=== PATIENT | female | born 1990 | race Two or more races ===

== ENCOUNTER 2024-03-15 08:00 | Day surgery (SDC) | payer MEDICAID, SELFPAY ==
[2024-03-14 14:57] VITALS: BMI 30.8
[2024-03-15] VITALS (12 sets, daily range): BP systolic 113–136; BP diastolic 42–96; PULSE 60–90; RESP 13–22; TEMP 36.6–36.7; O2SAT 93–113; BMI 30.4
[2024-03-15] MEDS: DiphenhydrAMINE INJ 50 MG/ML VIAL 25 MG IV (09:38)
[2024-03-15] MEDS: LIDOCAINE JELLY 2% (Urojet) 10 ML TUBE TOP (09:41)
[2024-03-15] MEDS: fentaNYL CIT INJ 50 mCg/ML AMP 2ML (ASD USE ONLY) IV (09:42)
[2024-03-15] MEDS: MEPERIDINE INJ 25 MG/ML VIAL (ASD USE ONLY) IV (09:50)
[2024-03-15] MEDS: MIDAZOLAM INJ 1 MG/ML VIAL 2 ML (ASD USE ONLY) 2 MG IV (09:53)
--- NOTE | 2024-03-15 10:06 | SUR.PHASEII ---
PT ARRIVED TO PACU, REPORT RECEIVED FROM ASIA REYES. PT ABLE TO RESPOND TO NAME CALLING AND DRIFTED BACK TO SLEEP. NO ACUTE DISTRESS NOTED.
--- NOTE | 2024-03-15 10:31 | SUR.PHASEII ---
PT STARTING TO WAKE UP MORE BUT STILL VERY DROWSY. NO ACUTE DISTRESS NOTED.
--- NOTE | 2024-03-15 11:27 | SUR.PHASEII ---
1040: Assumed care. Pt awake, alert. VS stable. No c/o pain, discomfort. Is sitting up tolerating po fluids with no difficulty swallowing and no n/v. 1045: Pt fully awake, oriented x3. Pt assisted to restroom. Ambulation steady. 1055: Pt out of restroom. Is dressed and in transport chair. Pt and friend stated understanding of discharge instructions. Pt discharged from [facility] in stable condition.
== END 2024-03-15 10:55 | disposition home or self-care (01) ==
PROVIDERS: PCP Nurse Practitioner; Referring Provider Surgery; Visit Provider Surgery
PROC: 0DBE8ZX Excision of Large Intestine, Via Natural or Artificial Opening Endoscopic, Diagnostic (ICD-10-PCS; CPT 45380; principal; 2024-03-15 10:00)
DX: K64.8 Other hemorrhoids (principal)
CPT/HCPCS: 45378; J1200; J2175; J2250; J3010

== ENCOUNTER 2024-03-26 09:23 | Outpatient (AMB) | payer MEDICAID, SELFPAY ==
[2024-03-26 09:29] VITALS: BP 115/79; PULSE 78; RESP 18; TEMP 36; O2SAT 96; BMI 31.1
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
== END 2024-03-26 09:33 | disposition home or self-care (01) ==
LOC: HODSRG 09:23
PROVIDERS: PCP Family Medicine; Referring Provider Family Medicine; Supervising Provider Surgery; Visit Provider Surgery
DX: Z71.2 Person consulting for explanation of examination or test findings (principal); K64.8 Other hemorrhoids
CPT/HCPCS: 99213; G0463

== ENCOUNTER 2024-04-05 09:14 | Emergency (ER) | payer MEDICAID, SELFPAY ==
[2024-04-05 09:37] VITALS: BP 121/84; PULSE 87; RESP 17; TEMP 36.8; O2SAT 97; BMI 30.4
--- NOTE | 2024-04-05 09:39 | EKG_ITS ---
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
--- NOTE | 2024-04-05 09:40 | PD.EDURI ---
Upper Respiratory Inf. RME/HPI General Chief Complaint: Flu Like Symptoms Stated Complaint: COUGH, CHEST TIGHTNESS Time Seen by Provider: 04/05/24 09:38 Source: patient Arrival date/time: 04/05/24 09:14 33-year-old female with no known medical history presents to the emergency room with a chief complaint of cough, body aches, 6 out of 10 sternal chest pain x 1 day Mode of arrival: ambulatory Limitations: no limitations Related Data Home Medications ?Medication ?Instructions ?Recorded ?Confirmed magnesium oxide 400 mg (241.3 mg 400 mg PO QDAY 03/14/24 03/26/24 magnesium) tablet prazosin 2 mg capsule 2 mg PO QPM 03/14/24 03/26/24 venlafaxine 150 mg 150 mg PO QDAY 03/14/24 03/26/24 capsule,extended release 24 hr Previous Rx's ?Medication ?Instructions ?Recorded ondansetron HCl 4 mg tablet 4 mg PO TID PRN nausea and 07/04/22 vomiting #15 tabs rizatriptan 10 mg disintegrating See Rx Instructions PO .COMPLEX 02/21/23 tablet (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) #30 tabs Allergies Allergy/AdvReac Type Severity Reaction Status Date / Time No Known Allergies Allergy Verified 04/05/24 09:15 Review of Systems Review of Systems Systems Reviewed: All systems reviewed, normal except as documented Constitutional Constitutional: Reports system reviewed and no additional complaints, except as documented, Denies fatigue, Denies fever(s), Denies headache(s) and Denies weakness Eyes Eyes: Reports system reviewed and no additional complaints, except as documented, Denies blurry vision and Denies change in vision ENT Ears, Nose, Mouth, and Throat: Reports system reviewed and no additional complaints, except as documented, Denies otalgia, Denies headache(s), Denies nasal congestion, Denies throat swelling and Denies vertigo Cardiovascular Cardiovascular: Reports system reviewed and no additional complaints, except as documented, Reports chest pain, Reports chest pain at rest, Reports chest pain with activity, Reports dyspnea and Denies dyspnea on exertion Respiratory Respiratory: Reports system reviewed and no additional complaints, except as documented, Reports chest congestion, Reports cough, Reports dyspnea, Denies dyspnea on exertion and Denies wheezing Gastrointestinal Gastrointestinal: Reports system reviewed and no additional complaints, except as documented, Denies abdominal pain, Denies cramping, Denies nausea and Denies vomiting Genitourinary Genitourinary: Reports system reviewed and no additional complaints, except as documented Musculoskeletal Musculoskeletal: Reports system reviewed and no additional complaints, except as documented and Denies back pain Integumentary/Breasts Skin/Breast: Reports system reviewed and no additional complaints, except as documented and Denies wounds Neurologic Neurologic: Reports system reviewed and no additional complaints, except as documented, Denies confusion, Denies headache(s), Denies lack of coordination, Denies vertigo and Denies weakness Psychiatric Psychiatric: Reports system reviewed and no additional complaints, except as documented, Denies anxiety, Denies confusion, Denies depression, Denies paranoia, Denies suicidal ideation and Denies tactile hallucinations Endocrine Endocrine: Reports system reviewed and no additional complaints, except as documented and Denies fatigue Hematologic/Lymphatic Hematologic/Lymphatic: Reports system reviewed and no additional complaints, except as documented and Denies lymphadenopathy Allergic/Immunologic Allergic/Immunologic: Reports system reviewed and no additional complaints, except as documented, Denies throat swelling, Denies urticaria and Denies wheezing ED Exam General Limitations: Present no limitations Course Quality Measures none Orders Category Date Time Status Bedside COVID-19 Antigen Test NOW Care 04/05/24 09:39 Active Bedside Influenza A&B Antigen Test NOW Care 04/05/24 09:39 Completed EKG (ED ONLY) *Do not use* NOW Care 04/05/24 09:39 Completed EKG (ED Only) Stat Exams 04/05/24 09:39 Draft B-Type Natriuretic Peptide Stat Lab 04/05/24 10:01 Completed CBC Stat Lab 04/05/24 10:01 Completed Comprehensive Metabolic Panel Stat Lab 04/05/24 10:01 Completed Troponin I Stat Lab 04/05/24 10:01 Completed Vital Signs Vital signs: Vital Signs Temperature 98.2 F 04/05/24 09:37 Pulse Rate 87 04/05/24 09:37 Respiratory Rate 17 04/05/24 09:37 Blood Pressure 121/84 04/05/24 09:37 Pulse Oximetry (%) 97 04/05/24 09:37 Oxygen Delivery Method Room Air 04/05/24 09:37 Upper Respiratory Infection MDM Narrative MDM Narrative:: 33-year-old female with no known medical history presents to the emergency room with a chief complaint of cough, body aches, 6 out of 10 sternal chest pain x 1 day Patient is hemodynamically stable and nontoxic-appearing Patient has clear bilateral lung sounds with no wheezing or abnormal breath sounds. EKG shows normal sinus rhythm at [address] deviation, CBC CMP troponin were all negative Chest x-ray negative for any pneumonic infiltrates. Influenza and COVID-19 test were negative. Patient discharged and educated to follow-up with primary care provider and return to the emergency room for any evidence of worsening signs or symptoms Patient data External records reviewed:: [facility] previous records Clinical information provided by:: patient Social determinants that could affect healthcare access:: none Patient has the following chronic illnesses:: No chronic illness How is presenting disease/condition affected by chronic disease/condition?: no chronic disease Evaluation data The following diagnostics were reviewed and interpreted by me:: lab results and radiology exam(s) Lab and/or radiology exams considered but not ordered:: Labs and radiology exams considered and ordered Interpretation Summary: Chest x-ray-no pneumonic infiltrates Medications / Prescriptions Medications or Prescriptions considered but not ordered:: No medication given Medication administrations:: No medication given Consultations Consultation(s) initiated? (list below): No Diagnosis Upper Respiratory Differential Diagnosis: upper respiratory infection, viral infection, influenza and pharyngitis Most likely diagnosis given after review of the tests above:: Upper respiratory infection Admission Indicated Admission indicated?: not indicated Admission Request Was there a request for admission?: No Disposition Plan Disposition Plan: Discharge Discharge Attestation Discharge Attestation: The patient and all family members were given an opportunity to ask questions and understood the discharge instructions. Discharge instructions specifically effects, indications for sooner follow up or return to the emergency department, and the expected course of current diagnosis. Patient condition: Stable Discharge Plan Plan Patient Disposition: HOME (Self Care) Disposition Comment: Stable Prescriptions/Referrals Prescriptions/Med Rec: No Action ondansetron HCl 4 mg tablet 4 mg PO TID PRN (Reason: nausea and vomiting) Qty: 15 0RF rizatriptan [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] 10 mg tablet,disintegrating See Rx Instructions .ROUTE .COMPLEX Qty: 30 0RF Rx Instructions: take 1 tab at onset of headache; if no relief may repeat 1 tab after at least 2 hrs; max = 3 tabs/24 hr venlafaxine 150 mg capsule,extended release 24hr 150 mg PO QDAY Patient Comments: TAKE 1 CAPSULE BY MOUTH EVERY DAY magnesium oxide 400 mg (241.3 mg magnesium) tablet 400 mg PO QDAY Patient Comments: TAKE 1 TABLET BY MOUTH EVERY DAY WITH FOOD FOR 30 DAYS prazosin 2 mg Capsule 2 mg PO QPM Referrals: Cornel Crandall MD [Primary Care Provider] - In 1 week Problem List Clinical Impression: Upper respiratory infection, viral, Upper respiratory infection Patient/Caregiver Discharge Instructions Education Materials: ED URI, Viral, No Abx (Adult) Additional Instructions: Please follow-up with your primary care provider in the next 24 to 48 hours. Your cardiac exam was negative for any acute findings. EKG was within normal limits blood work was within normal limits. Your influenza test and COVID-19 test were negative for any acute findings. For any evidence of worsening signs or symptoms please return to the emergency room immediately Print Language: Belarusian Stand Alone Forms: Deena Award Info., Work/School Release, Patient Portal Info Letter PA/GENET Supervising Physician PA/GENET Supervising Physician: Dr. León
[2024-04-05 10:12] LABS: Basophils % (Auto) 0 % (0-2.5); Eosinophils # (Auto) 0.2 Thou/mm3 (0.0-0.5); Eosinophils % (Auto) 3 % (0-10); Hematocrit 39.9 % (36.0-46.0); Hemoglobin 13.5 g/dL (12.0-16.0); Immature Granulocytes % (Auto) 0 % (0-0); Immature Granulocytes Auto 0.01 Thou/mm3 (0.00-0.00); Lymphocytes # (Auto) 2.3 Thou/mm3 (1.0-4.8); Lymphocytes % (Auto) 32 % (10-50); Mean Corpuscular HGB Conc 33.8 g/dl (31.0-37.0); Mean Corpuscular Hemoglobin 30.6 pg (25.0-35.0); Mean Corpuscular Volume 91 fL (80-100); Monocytes # (Auto) 0.6 Thou/mm3 (0.0-0.8); Monocytes % (Auto) 8 % (0-12); Neutrophils # (Auto) 3.9 Thou/mm3 (1.8-7.7); Neutrophils % (Auto) 56 % (37-80); Nucleated Red Blood Cell % 0 /100 WBC (0); Platelet Count 288 Thou/mm3 (140-440); RDW Standard Deviation 43.1 fL (36.4-46.3); Red Blood Count 4.41 Miln/mm3 (4.00-5.20)
[2024-04-05 10:32] LABS: B-Type Natriuretic Peptide < 20 pg/mL (0-100)
[2024-04-05 10:44] LABS: Alanine Aminotransferase 15 U/L (10-49); Albumin, Serum 4.8 gm/dL (3.5-5.0); Albumin/Globulin Ratio 1.7 (1.2-2.2); Alkaline Phosphatase 91 U/L (46-116); Anion Gap 8 (7-16); Aspartate Amino Transferase 14 U/L (0-34); BUN/Creatinine Ratio 15 Ratio (12-20); Bilirubin,Total 0.9 mg/dL (0.3-1.2); Blood Urea Nitrogen 12 mg/dL (9-23); Calcium 9.1 mg/dL (8.3-10.6); Calcium (Corrected) 9.1 mg/dL (8.5-10.1); Carbon Dioxide 25.8 mMol/L (20.0-31.0); Chloride 105 mMol/L (98-107); Creatinine (Component) 0.8 mg/dL (0.6-1.3); Estimated Creatinine Clearance 116.1 mL/min (>60); Globulin 2.8 gm/dL (2.3-3.5); Glucose 76 mg/dL (74-106); Osmolality,Calculated 276 (275-295); Potassium 3.7 mMol/L (3.4-5.1); Sodium 139 mMol/L (136-145); Total Protein 7.6 gm/dL (5.7-8.2); Troponin I < 0.002 ng/mL (0.0-0.045); eGFR > 60 See Note
[2024-04-05 12:22] VITALS: BP 128/85; PULSE 71; RESP 16; TEMP 36.6; O2SAT 97
== END 2024-04-05 12:30 | disposition home or self-care (01) ==
PROVIDERS: Nurse Practitioner Family; Emergency Provider Emergency Medicine; PCP Family Medicine
DX: J06.9 Acute upper respiratory infection, unspecified (principal); B97.89 Other viral agents as the cause of diseases classified elsewhere
CPT/HCPCS: 36415; 80053; 83880; 84484; 85025; 87400; 87811; 99283

== ENCOUNTER 2024-07-06 07:56 | Emergency (ER) | payer MEDICAID, SELFPAY ==
[2024-07-06 08:05] VITALS: BP 120/86; PULSE 99; RESP 18; TEMP 37.7; O2SAT 95; BMI 31.3
--- NOTE | 2024-07-06 08:11 | XR_ITS ---
Examination: PA lateral chest 2 views Technique: Upright PA lateral chest 2 views Exam date and time: July 06, 2024 0927 hrs. Indications: Coughing fever beginning 2 days ago. Findings: Normal heart size. Lungs are clear. Osseous structures are intact. Impression: No active disease.
--- NOTE | 2024-07-06 08:11 | PD.EDURI ---
Upper Respiratory Inf. RME/HPI General Chief Complaint: Flu Like Symptoms Stated Complaint: HURTS WHEN I COUGH [id number] PAIN; SEEN PCP W/ ABX Time Seen by Provider: 07/06/24 08:05 Source: patient Arrival date/time: 07/06/24 07:56 34-year-old female with no known medical history presents to the emergency room with a chief complaint of cough, congestion x 3 days Mode of arrival: ambulatory Limitations: no limitations Related Data Home Medications ?Medication ?Instructions ?Recorded ?Confirmed magnesium oxide 400 mg (241.3 mg 400 mg PO QDAY 03/14/24 03/26/24 magnesium) tablet prazosin 2 mg capsule 2 mg PO QPM 03/14/24 03/26/24 venlafaxine 150 mg 150 mg PO QDAY 03/14/24 03/26/24 capsule,extended release 24 hr Previous Rx's ?Medication ?Instructions ?Recorded ondansetron HCl 4 mg tablet 4 mg PO TID PRN nausea and 07/04/22 vomiting #15 tabs rizatriptan 10 mg disintegrating See Rx Instructions PO .COMPLEX 02/21/23 tablet (Maxalt-COMPLIANCE REVIEW OFFICER) #30 tabs Allergies Allergy/AdvReac Type Severity Reaction Status Date / Time No Known Allergies Allergy Verified 07/06/24 07:59 Review of Systems Review of Systems Systems Reviewed: All systems reviewed, normal except as documented Constitutional Constitutional: Reports system reviewed and no additional complaints, except as documented, Denies fatigue, Denies fever(s), Denies headache(s) and Denies weakness Eyes Eyes: Reports system reviewed and no additional complaints, except as documented, Denies blurry vision and Denies change in vision ENT Ears, Nose, Mouth, and Throat: Reports system reviewed and no additional complaints, except as documented, Denies otalgia, Denies headache(s), Denies nasal congestion, Reports sore throat, Denies throat swelling and Denies vertigo Cardiovascular Cardiovascular: Reports system reviewed and no additional complaints, except as documented, Denies chest pain, Denies dyspnea and Denies dyspnea on exertion Respiratory Respiratory: Reports system reviewed and no additional complaints, except as documented, Reports chest congestion, Reports cough, Denies dyspnea, Denies dyspnea on exertion and Denies wheezing Gastrointestinal Gastrointestinal: Reports system reviewed and no additional complaints, except as documented, Denies abdominal pain, Denies cramping, Denies nausea and Denies vomiting Genitourinary Genitourinary: Reports system reviewed and no additional complaints, except as documented Musculoskeletal Musculoskeletal: Reports system reviewed and no additional complaints, except as documented and Denies back pain Integumentary/Breasts Skin/Breast: Reports system reviewed and no additional complaints, except as documented and Denies wounds Neurologic Neurologic: Reports system reviewed and no additional complaints, except as documented, Denies confusion, Denies headache(s), Denies lack of coordination, Denies vertigo and Denies weakness Psychiatric Psychiatric: Reports system reviewed and no additional complaints, except as documented, Denies anxiety, Denies confusion, Denies depression, Denies paranoia, Denies suicidal ideation and Denies tactile hallucinations Endocrine Endocrine: Reports system reviewed and no additional complaints, except as documented and Denies fatigue Hematologic/Lymphatic Hematologic/Lymphatic: Reports system reviewed and no additional complaints, except as documented and Denies lymphadenopathy Allergic/Immunologic Allergic/Immunologic: Reports system reviewed and no additional complaints, except as documented, Denies throat swelling, Denies urticaria and Denies wheezing ED Exam General Limitations: Present no limitations General appearance: Present alert and in no apparent distress Head Head exam: Present atraumatic Eye Eye exam: Present normal appearance, PERRL and EOMI ENT ENT exam: Present normal exam, normal oropharynx and mucous membranes moist Neck Neck exam: Present normal inspection, full ROM and trachea midline Chest Chest inspection: Present normal inspection and symmetric chest wall rise Respiratory Respiratory exam: Present normal lung sounds bilaterally; Absent respiratory distress, wheezes, stridor, accessory muscle use or prolonged expiratory phase Cardiovascular Cardiovascular exam: Present regular rate, normal rhythm and normal heart sounds Abdominal Exam Abdominal exam: Present soft and normal bowel sounds Extremities Exam Extremities exam: Present normal inspection and full ROM Back Exam Back exam: Present normal inspection and full ROM Neurological Exam Neurological exam: Present alert, oriented X3 and CN II-XII intact Psychiatric Psychiatric exam: Present normal affect and normal mood Skin Skin exam: Present warm, dry, intact and normal color Course Quality Measures none Orders Category Date Time Status Bedside COVID-19 Antigen Test NOW Care 07/06/24 08:11 Active Bedside Influenza A&B Antigen Test NOW Care 07/06/24 08:11 Completed XR chest 2V Stat Exams 07/06/24 08:11 Completed CBC Stat Lab 07/06/24 08:35 Completed CMP [Comprehensive Metabolic Panel] Stat Lab 07/06/24 08:35 Completed Dexamethasone Inj [Decadron Inj] Med 07/06/24 08:11 Discontinued 10 mg PO X1 ONE cefTRIAXone [Rocephin] 1,000 mg Med 07/06/24 08:11 Discontinued Lidocaine 1% 20 ml [Xylocaine 1% 20 ML] 2.1 ml IM X1 Vital Signs Vital signs: Vital Signs Temperature 99.8 F 07/06/24 08:05 Pulse Rate 99 07/06/24 08:05 Respiratory Rate 18 07/06/24 08:05 Blood Pressure 120/86 H 07/06/24 08:05 Pulse Oximetry (%) 95 07/06/24 08:05 Oxygen Delivery Method Room Air 07/06/24 08:05 O2 saturation 95% within normal limits Upper Respiratory Infection MDM Narrative MDM Narrative:: 34-year-old female with no known medical history presents to the emergency room with a chief complaint of cough, congestion x 3 days Patient is hemodynamically stable and in no apparent distress. Lung sounds are clear bilaterally there is no wheezing or any abnormal breath sounds. ENT examination shows some exudates to the left tonsillar pillars. Patient states she was seen by her PCP and prescribed antibiotics for pharyngitis. Chest x-ray was negative for any pneumonic infiltrates. COVID-19 and influenza were both negative Patient was discharged and educated to follow-up with primary care provider in the next 24 to 48 hours and return to the emergency room for any evidence of worsening signs or symptoms Patient data External records reviewed:: [facility] previous records Clinical information provided by:: patient Social determinants that could affect healthcare access:: none Patient has the following chronic illnesses:: No chronic illness How is presenting disease/condition affected by chronic disease/condition?: no chronic disease Evaluation data The following diagnostics were reviewed and interpreted by me:: lab results and radiology exam(s) Lab and/or radiology exams considered but not ordered:: Labs and radiology exams considered and ordered Interpretation Summary: Chest [id number]: Normal heart size. Lungs are clear. Osseous structures are intact. Impression: No active disease. Medications / Prescriptions Medications or Prescriptions considered but not ordered:: Medication given Medication administrations:: Medication Administration History Discontinued Medications Ceftriaxone Sodium 1,000 mg/ (Lidocaine HCl 2.1 ml) 0 mg IM X1 ONE Stop: 07/06/24 08:12 Last Admin: 07/06/24 08:52 Dose: 1,000 mg Documented By: JONATHAN Dexamethasone Sodium Phosphate (Dexamethasone Sod Phos Inj 10 Mg/Ml Vial) 10 mg PO X1 ONE Stop: 07/06/24 08:12 Last Admin: 07/06/24 08:47 Dose: 10 mg Documented By: JONATHAN Medication given Consultations Consultation(s) initiated? (list below): No Diagnosis Upper Respiratory Differential Diagnosis: upper respiratory infection, viral infection, influenza and pharyngitis Most likely diagnosis given after review of the tests above:: Pharyngitis Admission Indicated Admission indicated?: not indicated Admission Request Was there a request for admission?: No Disposition Plan Disposition Plan: Discharge Discharge Attestation Discharge Attestation: The patient and all family members were given an opportunity to ask questions and understood the discharge instructions. Discharge instructions specifically effects, indications for sooner follow up or return to the emergency department, and the expected course of current diagnosis. Patient condition: Stable Discharge Plan Plan Patient Disposition: HOME (Self Care) Discharge Disposition comment: Stable Prescriptions/Referrals Prescriptions/Med Rec: No Action ondansetron HCl 4 mg tablet 4 mg PO TID PRN (Reason: nausea and vomiting) Qty: 15 0RF rizatriptan [Maxalt-COMPLIANCE REVIEW OFFICER] 10 mg tablet,disintegrating See Rx Instructions .ROUTE .COMPLEX Qty: 30 0RF Rx Instructions: take 1 tab at onset of headache; if no relief may repeat 1 tab after at least 2 hrs; max = 3 tabs/24 hr venlafaxine 150 mg capsule,extended release 24hr 150 mg PO QDAY Patient Comments: TAKE 1 CAPSULE BY MOUTH EVERY DAY magnesium oxide 400 mg (241.3 mg magnesium) tablet 400 mg PO QDAY Patient Comments: TAKE 1 TABLET BY MOUTH EVERY DAY WITH FOOD FOR 30 DAYS prazosin 2 mg Capsule 2 mg PO QPM Referrals: Cornel Crandall MD [Primary Care Provider] - In 1 week Problem List Clinical Impression: Pharyngitis Patient/Caregiver Discharge Instructions Education Materials: When You Have a Sore Throat, Self-Care for Sore Throats Additional Instructions: Please follow-up with your primary care provider in the next 24 to 48 hours. Your chest x-ray was negative for any pneumonic infiltrates. Your COVID-19 and influenza were both negative. Please continue to take your antibiotics that were prescribed by your primary care provider for your strep. For any evidence of worsening signs or symptoms return to the emergency room immediately Print Language: Khmer Stand Alone Forms: Deena Award Info., Work/School Release, Patient Portal Info Letter PA/PANAMA HAT BLOCKER Supervising Physician PA/PANAMA HAT BLOCKER Supervising Physician: Dr. Adams
[2024-07-06 08:45] LABS: Basophils % (Auto) 1 % (0-2.5); Eosinophils # (Auto) 0.2 Thou/mm3 (0.0-0.5); Eosinophils % (Auto) 2 % (0-10); Hematocrit 40.4 % (36.0-46.0); Hemoglobin 14.1 g/dL (12.0-16.0); Immature Granulocytes % (Auto) 0 % (0-0); Immature Granulocytes Auto 0.01 Thou/mm3 (0.00-0.00); Lymphocytes % (Auto) 23 % (10-50); Mean Corpuscular HGB Conc 34.9 g/dl (31.0-37.0); Mean Corpuscular Hemoglobin 31.2 pg (25.0-35.0); Mean Corpuscular Volume 89 fL (80-100); Monocytes # (Auto) 0.7 Thou/mm3 (0.0-0.8); Monocytes % (Auto) 8 % (0-12); Neutrophils # (Auto) 5.8 Thou/mm3 (1.8-7.7); Neutrophils % (Auto) 67 % (37-80); Nucleated Red Blood Cell % 0 /100 WBC (0); Platelet Count 310 Thou/mm3 (140-440); RDW Standard Deviation 42.1 fL (36.4-46.3); Red Blood Count 4.52 Miln/mm3 (4.00-5.20); White Blood Count 8.7 Thou/mm3 (3.6-11.0)
[2024-07-06] MEDS: DEXAMETHASONE SOD PHOS INJ 10 MG/ML VIAL PO (08:47)
[2024-07-06] MEDS: cefTRIAXone 1,000 MG, LIDOCAINE 1% 20 ML 2.1 ML IM (08:52)
[2024-07-06 09:13] LABS: Alanine Aminotransferase 18 U/L (10-49); Albumin, Serum 4.9 gm/dL (3.5-5.0); Albumin/Globulin Ratio 1.8 (1.2-2.2); Alkaline Phosphatase 93 U/L (46-116); Anion Gap 13 (7-16); Aspartate Amino Transferase 19 U/L (0-34); BUN/Creatinine Ratio 8 Ratio (12-20); Bilirubin,Total 1.5 mg/dL (0.3-1.2); Blood Urea Nitrogen 7 mg/dL (9-23); Calcium 8.8 mg/dL (8.3-10.6); Calcium (Corrected) 8.8 mg/dL (8.5-10.1); Carbon Dioxide 26.4 mMol/L (20.0-31.0); Chloride 104 mMol/L (98-107); Creatinine (Component) 0.9 mg/dL (0.6-1.3); Estimated Creatinine Clearance 103.8 mL/min (>60); Globulin 2.7 gm/dL (2.3-3.5); Glucose 115 mg/dL (74-106); Osmolality,Calculated 283 (275-295); Potassium 3.4 mMol/L (3.4-5.1); Sodium 143 mMol/L (136-145); Total Protein 7.6 gm/dL (5.7-8.2); eGFR > 60 See Note
== END 2024-07-06 10:03 | disposition home or self-care (01) ==
PROVIDERS: Nurse Practitioner Family; Emergency Provider Emergency Medicine; PCP Family Medicine
DX: J02.9 Acute pharyngitis, unspecified (principal)
CPT/HCPCS: 36415; 71046; 80053; 85025; 87400; 87811; 96372; 99283; J0696; J1100; J3490

== ENCOUNTER 2024-07-16 08:20 | Emergency (ER) | payer MEDICAID, SELFPAY ==
[2024-07-16 08:52] VITALS: BP 136/88; PULSE 98; RESP 18; TEMP 37.1; O2SAT 97
[2024-07-16 08:54] VITALS: BMI 31.3
--- NOTE | 2024-07-16 08:56 | XR_ITS ---
Examination: PA lateral chest 2 views TECHNIQUE: Upright PA lateral chest 2 views Exam date and time: July 17, 1999 2510 0 9:00 AM Comparison July 06, 2024 INDICATIONS: Coughing beginning 3 weeks ago. FINDINGS: Normal heart size. Lungs are clear. Osseous structures are intact IMPRESSION: No active disease
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
[2024-07-16] MEDS: DEXAMETHASONE SOD PHOS INJ 10 MG/ML VIAL PO (09:09)
[2024-07-16] MEDS: cefTRIAXone 1,000 MG, LIDOCAINE 1% 20 ML 2.1 ML IM (09:10)
== END 2024-07-16 09:50 | disposition home or self-care (01) ==
PROVIDERS: Emergency Provider Family Medicine; PCP Family Medicine
DX: J02.9 Acute pharyngitis, unspecified (principal); Z87.891 Personal history of nicotine dependence
CPT/HCPCS: 71046; 96372; 99283; J0696; J1100; J3490

== ENCOUNTER 2024-10-09 13:26 | Emergency (ER) | payer MEDICAID, SELFPAY ==
[2024-10-09 13:27] VITALS: BMI 31.3
[2024-10-09 14:02] VITALS: BP 131/61; PULSE 74; RESP 20; TEMP 36.8; O2SAT 98
--- NOTE | 2024-10-09 14:29 | XR_ITS ---
Examination: Foot, left, 3 views Technique: AP, oblique, lateral views foot, 3 views Date and time of exam: October 09, 2024, 1444 hours INDICATIONS: Injury to the foot today, foot pain. FINDINGS: No fracture or dislocation. No foreign body. IMPRESSION: No acute fracture
--- NOTE | 2024-10-09 14:32 | XR_ITS ---
EXAMINATION: Ankle, left 3 views . Technique: Ankle AP, oblique, lateral 3 views Date and time of exam: October 09, 2024 1444 hours INDICATIONS: Injury to the ankle today, ankle pain. FINDINGS: No fracture or dislocation. No foreign body IMPRESSION: No fracture or dislocation
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
[2024-10-09] MEDS: HYDROcodone/APAP 5/325 TABLET 1 TAB PO (15:52)
[2024-10-09] MEDS: KETOROLAC INJ 30 MG/ML VIAL IM (15:54)
== END 2024-10-09 17:34 | disposition home or self-care (01) ==
PROVIDERS: Emergency Provider Emergency Medicine; PCP Family Medicine
DX: S90.32XA Contusion of left foot, initial encounter (principal); S99.912A Unspecified injury of left ankle, initial encounter; X50.1XXA Overexertion from prolonged static or awkward postures, initial encounter; Y93.01 Activity, walking, marching and hiking
CPT/HCPCS: 73610; 73630; 96372; 99283; J1885; A9270

== ENCOUNTER 2024-11-02 19:02 | Emergency (ER) | payer MEDICAID, SELFPAY ==
[2024-11-02 19:02] VITALS: BMI 31.3
[2024-11-02 19:35] VITALS: BP 129/86; PULSE 72; RESP 18; TEMP 37.1; O2SAT 96
--- NOTE | 2024-11-02 20:35 | PD.EDSKIN ---
ED Skin Abcess FB-RME/HPI General Chief complaint: Skin/Abscess/Foreign Body Stated complaint: LUMP ON RIGHT UPPER BACK Time Seen by Provider: 11/02/24 19:52 Arrival date/time: 11/02/24 19:02 RME / HPI RME / HPI narrative: 34-year-old female patient came in for evaluation regarding swelling and redness to the right mid axillary area. Onset of symptoms for the last few days severity of symptoms moderate. Patient had history of similar episode in the past and was diagnosed with hydradenitis suppurativa. Denies any fever. Related Data Home Medications ?Medication ?Instructions ?Recorded ?Confirmed magnesium oxide 400 mg (241.3 mg 400 mg PO QDAY 03/14/24 03/26/24 magnesium) tablet prazosin 2 mg capsule 2 mg PO QPM 03/14/24 03/26/24 venlafaxine 150 mg 150 mg PO QDAY 03/14/24 03/26/24 capsule,extended release 24 hr Previous Rx's ?Medication ?Instructions ?Recorded ondansetron HCl 4 mg tablet 4 mg PO TID PRN nausea and 07/04/22 vomiting #15 tabs rizatriptan 10 mg disintegrating See Rx Instructions PO .COMPLEX 02/21/23 tablet (Maxalt-PROGRAMMING COORDINATOR) #30 tabs ibuprofen 600 mg tablet 600 mg PO Q6H PRN pain #30 tabs 10/09/24 clindamycin HCl 300 mg capsule 300 mg PO TID #20 caps 11/02/24 ibuprofen 800 mg tablet 800 mg PO Q8H PRN pain #30 tabs 11/02/24 Allergies Allergy/AdvReac Type Severity Reaction Status Date / Time No Known Allergies Allergy Verified 10/09/24 13:29 Review of Systems Review of Systems Narrative Review of Systems: Review of system reviewed and within normal limits except mentioned in HPI ED Exam Narrative Physical exam: VITAL SIGNS: Reviewed. GENERAL APPEARANCE: Alert and interactive, follows commands, no acute distress, HEAD AND FACE: Non-traumatic. ENT: PERRL, pink conjunctivitis, eyelid no trauma, Mucous membrane moist. NECK: Supple, nontender, no nuchal rigidity. RECTAL: Deferred. GENITAL: Deferred. NEUROLOGICAL: Gross motor function intact sensory function intact, Appropriate for age. MUSCULOSKELETAL: low back nontender, full range of motion. EXTREMITIES: Nontender, full range of motion. + 2 x 2 cm redness swelling, right axillary area. With tenderness, nonfluctuant SKIN: Color pink, dry, no rash, no lacerations, no abrasions, no contusions. LYMPHATICS: Deferred. Course Quality Measures none Orders Category Date Time Status Clindamycin [Cleocin] Med 11/02/24 20:33 Discontinued 300 mg PO X1 ONE Vital Signs Vital signs: Vital Signs Temperature 98.7 F 11/02/24 19:35 Pulse Rate 72 11/02/24 19:35 Respiratory Rate 18 11/02/24 19:35 Blood Pressure 129/86 H 11/02/24 19:35 Pulse Oximetry (%) 96 11/02/24 19:35 Oxygen Delivery Method Room Air 11/02/24 19:35 Skin / Abscess / Foreign Body MDM Narrative MDM Narrative:: 34-year-old female patient came in for evaluation regarding swelling and redness to the right mid axillary area. Onset of symptoms for the last few days severity of symptoms moderate. Patient had history of similar episode in the past and was diagnosed with hydradenitis suppurativa. Denies any fever. Plan of care discussed with the patient including antibiotic treatment at this time, I&D is not indicated they are not ready for I&D since still not fluctuant. Patient was advised to return to emergency room in 2 to 3 days for I&D. Patient agreed with all plan. Was given first dose of clindamycin in the ED. Patient data External records reviewed:: None Clinical information provided by:: patient Social determinants that could affect healthcare access:: none Patient has the following chronic illnesses:: None How is presenting disease/condition affected by chronic disease/condition?: no chronic disease Evaluation data The following diagnostics were reviewed and interpreted by me:: other (specify) (None) Lab and/or radiology exams considered but not ordered:: None Interpretation Summary: None Medications / Prescriptions Medications or Prescriptions considered but not ordered:: None Medication administrations:: Medication Administration History Discontinued Medications Clindamycin HCl (Clindamycin 150 Mg Capsule) 300 mg PO X1 ONE Stop: 11/02/24 20:34 Clindamycin Consultations Consultation(s) initiated? (list below): No Diagnosis Skin/Abscess Differential Diagnosis: abscess of skin or subcutaneous tissue, cellulitis and insect bites Most likely diagnosis given after review of the tests above:: Hydradenitis suppurativa Admission Indicated Admission indicated?: not indicated Admission Request Was there a request for admission?: No Disposition Plan Disposition Plan: Discharge Discharge Attestation Discharge Attestation: The patient was given an opportunity to ask questions and understood the discharge instructions. Discharge instructions specifically effects, indications for sooner follow up or return to the emergency department, and the expected course of current diagnosis. Patient condition: Stable Discharge Plan Plan Patient Disposition: HOME (Self Care) Discharge Disposition comment: Stable Prescriptions/Referrals Prescriptions/Med Rec: New clindamycin HCl 300 mg capsule 300 mg PO TID Qty: 20 0RF ibuprofen 800 mg tablet 800 mg PO Q8H PRN (Reason: pain) Qty: 30 0RF No Action ondansetron HCl 4 mg tablet 4 mg PO TID PRN (Reason: nausea and vomiting) Qty: 15 0RF rizatriptan [Maxalt-PROGRAMMING COORDINATOR] 10 mg tablet,disintegrating See Rx Instructions .ROUTE .COMPLEX Qty: 30 0RF Rx Instructions: take 1 tab at onset of headache; if no relief may repeat 1 tab after at least 2 hrs; max = 3 tabs/24 hr venlafaxine 150 mg capsule,extended release 24hr 150 mg PO QDAY Patient Comments: TAKE 1 CAPSULE BY MOUTH EVERY DAY magnesium oxide 400 mg (241.3 mg magnesium) tablet 400 mg PO QDAY Patient Comments: TAKE 1 TABLET BY MOUTH EVERY DAY WITH FOOD FOR 30 DAYS prazosin 2 mg Capsule 2 mg PO QPM ibuprofen 600 mg tablet 600 mg PO Q6H PRN (Reason: pain) Qty: 30 0RF Referrals: Cornel Crandall MD [Primary Care Provider] - In 1 week Problem List Clinical Impression: Hidradenitis suppurativa Patient/Caregiver Discharge Instructions Discharge Activity: activity as tolerated Education Materials: ED Hidradenitis Suppurativa, Abx Additional Instructions: Thank you for the opportunity for serving you today. You are stable for discharged . You are advised to: Follow-up with your PCP in 1 to 2 days Return to ED for worsening of symptoms Increase oral fluids Take medication as prescribed Apply warm compress 3 times a day as needed Return to emergency room in 2 to 3 days for possible I&D Print Language: Welsh Stand Alone Forms: Deena Award Info., Patient Portal Info Letter KYLIE/GENET Supervising Physician KYLIE/GENET Supervising Physician: MD Jcarlos
[2024-11-02] MEDS: CLINDAMYCIN 150 MG CAPSULE 300 MG PO (20:38)
== END 2024-11-02 20:41 | disposition home or self-care (01) ==
PROVIDERS: Emergency Provider Emergency Medicine; PCP Family Medicine
DX: L73.2 Hidradenitis suppurativa (principal)
CPT/HCPCS: 99282; A9270

== ENCOUNTER 2024-11-22 10:05 | Emergency (ER) | payer MEDICAID, SELFPAY ==
[2024-11-22 10:41] VITALS: BP 129/81; PULSE 81; RESP 18; TEMP 37.1; O2SAT 97; BMI 31.3
--- NOTE | 2024-11-22 10:48 | XR_ITS ---
Examination: CT brain head without contrast. 2-D sagittal coronal reconstructions Date and time of exam:November 22, 2024 1114 hours INDICATIONS: Onset severe head pain today COMPARISON: March 19, 2021 CTDI: vol (mGy):51.5 DLP: (mGycm):1024 Technique: Multiple CT axial sections of the brain have been obtained, 5 mm slice thickness. Contrast has not been administered. 2-D sagittal, coronal reconstructions have been obtained Low dose protocols were performed. One or more of the following dose reduction techniques were used; automated exposure control, adjustment of the mA and/or KV according to patient size, use of iterative reconstruction technique. Findings: No significant ventricular enlargement. Intra-axial or extra-axial hemorrhage density is not seen. No mass effect or midline shift Basal cisterns are not remarkable. Fourth ventricle is midline. Cranial vault intact. Impression: Negative for acute hemorrhage, mass effect or midline shift If new onset headaches persist, consider MRI brain without contrast follow-up
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
--- NOTE | 2024-11-22 13:03 | PC.NURSE ---
PT WAS ASKED IF SHE WOULD LIKE TO SPEAK TO THE PROVIDER ABOUT HER CONCERNS; PT DECLINED AND STATED NO, I JUST WANT MY PAPERS SO I CAN GET OUT OF HERE
== END 2024-11-22 13:05 | disposition home or self-care (01) ==
PROVIDERS: Emergency Provider Family Medicine
DX: R51.9 Headache, unspecified (principal)
CPT/HCPCS: 70450; 99283

== ENCOUNTER 2024-12-14 09:18 | Emergency (ER) | payer MEDICAID, SELFPAY ==
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
[2024-12-14] MEDS: ONDANSETRON ODT 4 MG TABRAP PO (09:56)
[2024-12-14] MEDS: IBUPROFEN TAB 600 MG TABLET PO (09:56)
[2024-12-14 09:58] VITALS: BP 116/81; PULSE 83; RESP 18; TEMP 36.5; O2SAT 98; BMI 31.4
[2024-12-14 10:10] LABS: Basophils # (Auto) 0.0 Thou/mm3 (0.0-0.2); Basophils % (Auto) 1 % (0-2.5); Eosinophils # (Auto) 0.2 Thou/mm3 (0.0-0.5); Eosinophils % (Auto) 2 % (0-10); Hematocrit 40.5 % (36.0-46.0); Hemoglobin 14.1 g/dL (12.0-16.0); Immature Granulocytes Auto 0.01 Thou/mm3 (0.00-0.00); Lymphocytes # (Auto) 2.1 Thou/mm3 (1.0-4.8); Lymphocytes % (Auto) 29 % (10-50); Mean Corpuscular HGB Conc 34.8 g/dl (31.0-37.0); Mean Corpuscular Hemoglobin 31.2 pg (25.0-35.0); Mean Corpuscular Volume 90 fL (80-100); Monocytes # (Auto) 0.5 Thou/mm3 (0.0-0.8); Monocytes % (Auto) 7 % (0-12); Neutrophils # (Auto) 4.5 Thou/mm3 (1.8-7.7); Neutrophils % (Auto) 61 % (37-80); Nucleated Red Blood Cell # 0.00 Thou/mm3 (0.00-0.00); Nucleated Red Blood Cell % 0 /100 WBC (0); Platelet Count 335 Thou/mm3 (140-440); RDW Standard Deviation 42.7 fL (36.4-46.3); Red Blood Count 4.52 Miln/mm3 (4.00-5.20); White Blood Count 7.3 Thou/mm3 (3.6-11.0)
[2024-12-14 10:22] LABS: Collection Type, Urine Clean Catch
[2024-12-14 10:35] LABS: Alanine Aminotransferase 23 U/L (10-49); Albumin, Serum 4.9 gm/dL (3.5-5.0); Albumin/Globulin Ratio 2.0 (1.2-2.2); Alkaline Phosphatase 79 U/L (46-116); Anion Gap 11 (7-16); Aspartate Amino Transferase 20 U/L (0-34); BUN/Creatinine Ratio 9 Ratio (12-20); Bilirubin,Total 1.5 mg/dL (0.3-1.2); Blood Urea Nitrogen 8 mg/dL (9-23); Calcium 9.5 mg/dL (8.3-10.6); Calcium (Corrected) 9.5 mg/dL (8.5-10.1); Carbon Dioxide 27.6 mMol/L (20.0-31.0); Chloride 104 mMol/L (98-107); Creatinine (Component) 0.9 mg/dL (0.6-1.3); Estimated Creatinine Clearance 104.0 mL/min (>60); Globulin 2.4 gm/dL (2.3-3.5); Glucose 112 mg/dL (74-106); Lipase 40 U/L (12-53); Osmolality,Calculated 284 (275-295); Potassium 3.9 mMol/L (3.4-5.1); Sodium 143 mMol/L (136-145); Total Protein 7.3 gm/dL (5.7-8.2); eGFR > 60 See Note
[2024-12-14 10:44] LABS: Influenza A Ag Negative; Influenza B Ag Negative
[2024-12-14 10:45] LABS: HCG Qualitative,Urine Negative
[2024-12-14 11:01] LABS: Bacteria,Urine Rare; Bilirubin,Urine Negative (Negative); Blood,Urine Negative (Negative); Clarity,Urine Clear (Clear/Hazy); Color,Urine Yellow (Lt Yel-Yel); Glucose, Urine Negative (Negative); Ketones,Urine Negative (Negative); Leukocyte Esterase,Urine Negative (Negative); Nitrite,Urine Negative (Negative); PH,Urine 5.5 (5.0-7.0); Protein,Urine Trace (Neg - Trace); RBC,Urine 3 /hpf (0-3); Specific Gravity,Urine 1.030 (1.001-1.035); Squamous Epithelial Cell,Urine 8 /hpf (0-5); Urobilinogen,Urine Negative mg/dL (0.0-1.0); WBC,Urine 2 /hpf (0-5)
== END 2024-12-14 11:31 | disposition home or self-care (01) ==
LOC: SERX 11:30
PROVIDERS: Emergency Provider Nurse Practitioner Family; PCP Physician Assistant Medical
DX: K52.9 Noninfective gastroenteritis and colitis, unspecified (principal)
CPT/HCPCS: 36415; 80053; 81001; 81025; 83690; 85025; 87086; 87502; 87811; 99283; Q0162; A9270

== ENCOUNTER 2025-01-23 16:32 | Emergency (ER) | payer MEDICAID, SELFPAY ==
[2025-01-23 16:45] VITALS: BP 128/87; PULSE 97; RESP 18; TEMP 37; O2SAT 99
--- NOTE | 2025-01-23 16:52 | XR_ITS ---
EXAMINATION: PA lateral chest 2 views TECHNIQUE: Upright PA lateral chest 2 views Date and time: January 23, 2025, 1709 hours COMPARISON: July 16, 2024 INDICATION: Dyspnea shortness of breath chest pain beginning 1 week ago. FINDINGS: Normal heart size Lungs are clear. The osseous structures are intact IMPRESSION: No active disease
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
[2025-01-23 17:18] LABS: Influenza A Ag Negative; Influenza B Ag Negative
[2025-01-23] MEDS: ALBUTEROL/IPRATROPIUM (Duoneb) RT SOL 3 ML NEBU INH (17:19)
[2025-01-23 17:23] VITALS: PULSE 108; RESP 20; O2SAT 99
[2025-01-23 17:41] LABS: Strep A Rapid Negative (Negative)
== END 2025-01-23 18:19 | disposition home or self-care (01) ==
LOC: SERX 18:18
PROVIDERS: Physician Assistant; Emergency Provider Family Medicine; PCP Family Medicine
DX: J06.9 Acute upper respiratory infection, unspecified (principal); J45.21 Mild intermittent asthma with (acute) exacerbation
CPT/HCPCS: 71046; 87502; 87635; 87651; 94640; 99283; A9270